=== PATIENT | male | born 1955 | race African-American/Black ===

== ENCOUNTER 2019-03-18 22:15 | Emergency (ER) | payer MEDICAID, OTHER ==
[~2019-03-18] VITALS: Ht 185.4 cm; Wt 96.0 kg
[~2019-03-18 22:15] MED LIST: AMLO10TA80; ASPI81TA47; LISI10TA5
[2019-03-18 22:25] VITALS: BP 168/103
== END 2019-03-18 23:12 | disposition left against medical advice (07) ==
LOC: ER 22:15
DX: R42 Dizziness and giddiness (principal); R06.02 Shortness of breath; Z53.21 Procedure and treatment not carried out due to patient leaving prior to being seen by health care provider

== ENCOUNTER 2019-06-08 22:12 | Emergency (ER) | payer MEDICAID ==
[~2019-06-08] VITALS: Ht 180.3 cm; Wt 86.0 kg
[2019-06-09] MEDS ORDERED: TRAMADOL HCL/ACETAMINOPHEN 37.5/325MG TABLET PO ONE (02:30)
[2019-06-09 05:25] VITALS: BP 155/75
[2019-06-09] MEDS ORDERED: SODIUM CHLORIDE 0.9% 1,000 ML IV ONE (05:30)
== END 2019-06-09 07:15 | disposition home or self-care (01) ==
LOC: ER 22:12
DX: S92.424A Nondisplaced fracture of distal phalanx of right great toe, initial encounter for closed fracture (principal); G89.29 Other chronic pain; M19.90 Unspecified osteoarthritis, unspecified site; E78.00 Pure hypercholesterolemia, unspecified; I10 Essential (primary) hypertension; F12.10 Cannabis abuse, uncomplicated; Z86.73 Personal history of transient ischemic attack (TIA), and cerebral infarction without residual deficits; F43.10 Post-traumatic stress disorder, unspecified; Y04.0XXA Assault by unarmed brawl or fight, initial encounter; Y93.89 Activity, other specified; Y92.488 Other paved roadways as the place of occurrence of the external cause
CPT/HCPCS: 73610; 73630; 99284; J7030

== ENCOUNTER 2019-11-24 19:23 | Emergency (ER) | payer MEDICAID ==
[~2019-11-24] VITALS: Ht 180.3 cm; Wt 81.0 kg
[2019-11-24 19:41] VITALS: BP 177/93
== END 2019-11-24 23:59 | disposition left against medical advice (07) ==
LOC: ER 19:23
DX: F10.10 Alcohol abuse, uncomplicated (principal); Z53.21 Procedure and treatment not carried out due to patient leaving prior to being seen by health care provider; Y90.9 Presence of alcohol in blood, level not specified

== ENCOUNTER 2021-05-18 16:01 | Inpatient (IN) | payer MEDICAID ==
[~2021-05-18] VITALS: Ht 177.8 cm; Wt 89.8 kg
[~2021-05-18 16:01] MED LIST changes: +LISI10TA26; -LISI10TA5
[2021-05-18] MEDS ORDERED: ONDANSETRON HCL 4MG/2ML INJ IV STA (16:18)
[2021-05-18] MEDS ORDERED: LEVETIRACETAM 500MG PREMIX 100 ML IV ONE (16:30)
[2021-05-18] MEDS ORDERED: SODIUM CHLORIDE 0.9% 1,000 ML IV ONE (16:30)
[2021-05-18] MEDS ORDERED: LORAZEPAM 2MG/ML CPJ IV ONE (16:30)
[2021-05-18 17:20] LABS: BG BASE EXCESS -10.2 mmol/L (-2.0-2.0); BG CARBOXYHEMOGLOBIN 0.5 % (0.5-1.5); BG DEOXYHEMOGLOBIN 5.4 % (0.0-5.0); BG FRACTION INSPIRED OXYGEN 40; BG HCO3 ACT 14.9 mmol/L (22.0-26.0); BG METHEMOGLOBIN 0.3 % (0.0-1.5); BG OXYGEN SATURATION 94.6 % (92.0-98.5); BG OXYHEMOGLOBIN 93.8 % (94.0-97.0); BG PCO2 31.3 mmHg (35.0-45.0); BG PH 7.296 (7.350-7.450); BG PO2 82.1 mmHg (75.0-100.0); BG SAMPLE SITE RIGHT RADIAL; BG TOTAL HEMOGLOBIN 14.8 g/dL (12.0-18.0); BG VENT MODE MASK - SIMPLE
[2021-05-18 17:29] LABS: HEMATOCRIT. 45.1 % (42.0-52.0); HEMOGLOBIN. 15.4 g/dL (14.0-18.0); MEAN CORPUSCULAR HEMOGLOBIN 33.4 pg (28.0-32.0); MEAN CORPUSCULAR VOLUME 97.6 fL (80.0-94.0); MEAN PLATELET VOLUME 8.4 fl (7.4-10.4); PLATELET 110 x1000/uL (130-400); RED BLOOD CELL COUNT 4.62 mill/uL (4.7-6.1); RED CELL DISTRIBUTION WIDTH 15.1 % (11.6-14.6)
[2021-05-18 18:10] LABS: PLATELET ESTIMATE DECREASED
[2021-05-18 19:09] LABS: CLARITY URINE CLEAR (CLEAR); COLOR URINE DARK YELLOW (YELLOW); KETONES URINE 1+ (NEGATIVE); LEUKOCYTE ESTERASE URINE NEGATIVE (NEGATIVE); NITRITE URINE NEGATIVE (NEGATIVE); OCCULT BLOOD URINE 3+ (NEGATIVE); PH URINE 5.5 (4.5-8.0); PROTEIN URINE 3+ (NEGATIVE); SPECIFIC GRAVITY URINE 1.019 (1.005-1.030)
[2021-05-18 19:22] LABS: *AMPHETAMINES SCREEN URINE NEGATIVE (NEGATIVE); *BARBITURATES SCREEN URINE NEGATIVE (NEGATIVE); *BENZODIAZEPINES SCREEN URINE PRESUMTIVE POSITIVE (NEGATIVE); *COCAINE SCREEN URINE NEGATIVE (NEGATIVE); CANNABINOID URINE SCREEN NEGATIVE (NEGATIVE); OPIATES URINE SCREEN NEGATIVE (NEGATIVE); PHENCYCLIDINE URINE SCREEN NEGATIVE (NEGATIVE)
[2021-05-18 19:23] LABS: METHADONE URINE SCREEN NEGATIVE (NEGATIVE)
[2021-05-18] MEDS ORDERED: HYDRALAZINE 20MG/ML VIAL IV ONE (19:45)
[2021-05-18 19:58] LABS: CHLORIDE 104 mEq/L (98-107)
[2021-05-18 20:04] LABS: ETHANOL BLOOD < 10 mg/dL
[2021-05-18 21:40] VITALS: BP 171/84
[2021-05-18 23:57] LABS: INR 1.1; PARTIAL THROMBOPLASTIN TIME 27.1 sec (23.4-31.0); PROTHROMBIN TIME 11.4 sec (9.6-11.0)
[2021-05-19] VITALS: BP_SYST 160; BP_SYST 171; BP_DIAS 84; BP_DIAS 87
[2021-05-19] MEDS ORDERED: OMEPRAZOLE 20MG CAPSULE EXTENDED RELEASE PO NR (00:15)
[2021-05-19] MEDS ORDERED: ACETAMINOPHEN 325MG TABLET PO PRN (00:15)
[2021-05-19] MEDS ORDERED: LORAZEPAM 1MG TABLET PO PRN (00:15)
[2021-05-19] MEDS ORDERED: OMEPRAZOLE 20MG CAPSULE EXTENDED RELEASE PO SCH ×2 (01:00→09:00)
[2021-05-19 04:00] VITALS: BP 180/103
[2021-05-19] MEDS: CLONIDINE 0.1MG TABLET PO PRN (04:23)
[2021-05-19] MEDS ORDERED: PNEUMOCOCCAL 23-VAL P-SAC VAC 0.5 ML IM ONE (05:00)
[2021-05-19] MEDS: CHLORDIAZEPOXIDE 5 MG CAPSULE PO SCH ×2 (05:56→14:18)
[2021-05-19 07:34] LABS: HEMATOCRIT 38.8 % (42.0-52.0); HEMOGLOBIN 13.2 g/dL (14.0-18.0); MEAN CORPUSCULAR HEMOGLOBIN 32.6 pg (28.0-32.0); MEAN CORPUSCULAR VOLUME 95.6 fL (80.0-94.0); PLATELET 87 x1000/uL (130-400); RED BLOOD CELL COUNT 4.06 mill/uL (4.7-6.1); RED CELL DISTRIBUTION WIDTH 15.2 % (11.6-14.6)
[2021-05-19 07:45] LABS: CHLORIDE 100 mEq/L (98-107)
[2021-05-19 08:00] VITALS: BP 169/90
[2021-05-19] MEDS ORDERED: LISINOPRIL 20MG TABLET PO SCH ×2 (09:00→09:15)
[2021-05-19] MEDS ORDERED: FOLIC ACID 1MG TABLET PO SCH (09:00)
[2021-05-19] MEDS ORDERED: ASPIRIN 81MG TABLET PO SCH (09:00)
[2021-05-19] MEDS ORDERED: POTASSIUM CHLORIDE 20MEQ TABLET SR PO SCH (09:00)
[2021-05-19] MEDS ORDERED: ENOXAPARIN 40MG/0.4ML SYR SUBCUT SCH (09:00)
[2021-05-19] MEDS ORDERED: LEVETIRACETAM 500MG TABLET PO SCH (09:00)
[2021-05-19] MEDS ORDERED: THIAMINE HCL 100MG TABLET PO SCH (09:00)
[2021-05-19] MEDS ORDERED: AMLODIPINE 10MG TABLET PO SCH (09:00)
[2021-05-19] MEDS: IPRATROPIUM/ALBUTEROL 0.5-3(2.5)MG/3ML NEB HHN SCH ×3 (09:03→15:46)
[2021-05-19 12:00] VITALS: BP 167/87
[2021-05-19] MEDS ORDERED: LOSA100T32 MT (14:36)
[2021-05-19] MEDS ORDERED: AMLO10TA80 MT (14:36)
[2021-05-19] MEDS ORDERED: KEPP500 MT (14:36)
[2021-05-19 16:00] VITALS: BP 138/83
[2021-05-19 17:42] VITALS: BP 167/87
== END 2021-05-19 18:09 | disposition home or self-care (01) | DRG 53 ==
LOC: ER 16:01 → 8WST 17:49 → ENRESERV 19:45
PROVIDERS: ADMIT Internal Medicine; ATTEND Internal Medicine
DX: G40.901 Epilepsy, unspecified, not intractable, with status epilepticus (principal); D69.6 Thrombocytopenia, unspecified; I16.0 Hypertensive urgency; T42.6X6A Underdosing of other antiepileptic and sedative-hypnotic drugs, initial encounter; I10 Essential (primary) hypertension; Z82.49 Family history of ischemic heart disease and other diseases of the circulatory system; Y92.89 Other specified places as the place of occurrence of the external cause
CPT/HCPCS: 36415; 36600; 71045; 80048; 80053; 80305; 80320; 81003; 82375; 82542; 82805; 83880; 84484; 85025; 85027; 93005; 99285; J0360; J1650; J1953; J2405; J7030; G0480